=== PATIENT | male | born 1970 | race Caucasian/White ===

== ENCOUNTER 2020-11-06 15:14 | Inpatient (IN) ==
[2020-11-06] MEDS ORDERED: Pantoprazole 40 MG VIAL IVP ONE (15:27)
[2020-11-06] MEDS ORDERED: Octreotide 50 MCG/ML INJ IVP ONE (15:27)
[2020-11-06] MEDS ORDERED: Isovue-370 500 ML BOTTLE IVP ONE (15:28)
[2020-11-06] MEDS ORDERED: cefTRIAXone 1,000 MG in Water for inj. (sterile) 10 ML IVP ONE ×2 (15:28→22:00)
[2020-11-06] MEDS ORDERED: 0.9 % Sodium Chloride 1,000 ML IVC ONE ×3 (15:29→17:12)
[2020-11-06] MEDS ORDERED: Ondansetron 4 MG/2 ML VIAL IVP ONE (15:29)
[2020-11-06] MEDS ORDERED: Octreotide 400 MCG in 0.9 % Sodium Chloride 100 ML IVC SCH ×2 (15:30→22:00)
[2020-11-06] MEDS ORDERED: *HR* FentaNYL (PF) 100 MCG/2 ML VIAL IVP ONE (15:38)
[2020-11-06 15:45] LABS: Basophils % 0.2 %; Eosinophils % 0.1 %; Hematocrit 39.8 % (37.5-50.1); Hemoglobin 13.6 g/dL (12.9-16.9); Immature Granulocytes % 0.6 % (0-4); Lymphocytes % 5.1 %; Mean Corpuscular HGB Conc 34.2 g/dL (31.6-35.5); Mean Corpuscular Hemoglobin 32.8 pg (28.0-33.3); Mean Corpuscular Volume 95.9 fL (83.0-100.0); Mean Platelet Volume 9.1 fL (9.4-12.4); Monocytes # 1.1 K/mcL (0.0-1.3); Monocytes % 5.4 %; Neutrophils # 17.5 K/mcL (1.6-8.9); Platelet Count 144 K/mcL (140-400); Red Blood Count 4.15 M/mcL (4.19-5.50); Red Cell Distribution Width 20.8 % (11.5-14.5); Segmented Neutrophils % 88.6 %; White Blood Count 19.8 K/mcL (4.3-11.1)
[2020-11-06] MEDS ORDERED: Octreotide 50 MCG/ML INJ IVP STA (15:49)
[2020-11-06 15:52] LABS: INR 2.4; Prothrombin Time 27.5 Seconds (9.4-12.1)
[2020-11-06 16:06] LABS: Platelet Estimate Slight Decrease (Normal)
[2020-11-06 16:20] LABS: Acetaminophen < 10 mcg/mL (10-20); Alanine Aminotransferase 54 Units/L (7-52); Albumin 2.4 g/dL (3.5-5.7); Albumin/Globulin Ratio 0.5 (1.1-2.2); Alkaline Phosphatase 121 Units/L (34-104); Aspartate Amino Transferase 82 Units/L (13-39); BUN/Creatinine Ratio 21 (6-26); Bilirubin,Direct 4.3 mg/dL (0.0-0.2); Bilirubin,Indirect 3.9 mg/dL (0.0-1.0); Bilirubin,Total 8.2 mg/dL (0.3-1.0); Blood Urea Nitrogen 31 mg/dL (6-20); Carbon Dioxide 23 mEq/L (23-29); Chloride 94 mEq/L (98-107); Ethanol < 10 mg/dL (Less than 10); Glucose 93 mg/dL (70-105); Lipase 44 Units/L (11-82); Osmolality,Calculated 276 (280-300); Potassium 3.8 mEq/L (3.5-5.1); Salicylate < 2.5 mg/dL (15.0-30.0); Sodium 130 mEq/L (136-145); Total Protein 7.4 g/dL (6.4-8.9); eGFR For African Americans > 60 (> 60); eGFR For Non-African Americans 50 (> 60)
[2020-11-06] MEDS ORDERED: Azithromycin 500 MG in 0.9 % Sodium Chloride 250 ML IVPB ONE (16:21)
[2020-11-06] MEDS ORDERED: Albumin 25% 25gram/100mL 25 GM/100 ML IV.SOLN IVPB ONE (18:30)
[2020-11-06] MEDS ORDERED: Metoclopramide 10 MG/2 ML VIAL IVP ONE (18:46)
[2020-11-06 19:30] LABS: RBC,Peritoneal Fluid 7000 RBC/mcL
[2020-11-06 19:33] LABS: Appearance of Peritoneal Fl HAZY (Clear)
[2020-11-06 19:43] LABS: Amylase,Peritoneal Fluid < 10 Units/L (No Ref Range); Glucose,Peritoneal Fluid 45 mg/dL (No Ref Range); Total Protein,Peritoneal Fluid < 2.0 g/dL
[2020-11-06] MEDS ORDERED: *HR* FentaNYL (PF) 100 MCG/2 ML VIAL ONE (20:09)
[2020-11-06] MEDS ORDERED: Lidocaine HCL 4 ML Topical Solution (Laryng-O-Jet Kit Sterile Pak) TP ONE (20:09)
[2020-11-06] MEDS ORDERED: *HR* Rocuronium Bromide 50 MG/5 ML VIAL ONE (20:10)
[2020-11-06] MEDS ORDERED: *HR* Succinylcholine 200 MG/10 ML VIAL IVP ONE (20:23)
[2020-11-06 20:25] LABS: Basophils,Peritoneal Fluid 0 %; Eosinophils,Peritoneal Fluid 0 %
[2020-11-06] MEDS ORDERED: *HR* PHENYLEPHRINE 1,000 MCG/10 ML SYRINGE IVP ONE (20:48)
[2020-11-06] MEDS ORDERED: *HR* Midazolam HCl 2 MG/2 ML VIAL ONE (20:48)
[2020-11-06] MEDS: FentaNYL (PF) 1,000 MCG/100 ML IV.SOLN IVC SCH (21:10)
[2020-11-06] MEDS ORDERED: Artificial Tears SOLN 15 ML BOTTLE BOTH EYES PRN (21:14)
[2020-11-06] MEDS ORDERED: Naloxone 0.4 MG/ML INJ IVP PRN (21:16)
[2020-11-06] MEDS ORDERED: cefoTAXime 2,000 MG in 0.9 % Sodium Chloride 100 ML IVPB SCH (22:00)
[2020-11-06] MEDS: Chlorhexidine Rinse 15 ML MOUTHWASH MM SCH (22:08)
[2020-11-06 22:31] LABS: Hematocrit 34.4 % (37.5-50.1)
[2020-11-06 22:39] LABS: VBG Ionized Calcium 0.92 mmol/L (1.15-1.35)
[2020-11-06 22:40] LABS: Hemoglobin 11.4 g/dL (12.9-16.9)
[2020-11-06 22:51] LABS: BUN/Creatinine Ratio 26 (6-26); Blood Urea Nitrogen 33 mg/dL (6-20); Calcium 7.4 mg/dL (8.6-10.3); Carbon Dioxide 22 mEq/L (23-29); Chloride 98 mEq/L (98-107); Glucose 102 mg/dL (70-105); Magnesium 1.8 mg/dL (1.6-2.6); Osmolality,Calculated 275 (280-300); Phosphorous 4.8 mg/dL (2.7-4.5); Potassium 4.5 mEq/L (3.5-5.1); Sodium 129 mEq/L (136-145); eGFR For African Americans > 60 (> 60); eGFR For Non-African Americans 59 (> 60)
[2020-11-06] MEDS: Artificial Tears SOLN 15 ML BOTTLE BOTH EYES SCH (23:25)
[2020-11-06] MEDS: Octreotide 400 MCG in 0.9 % Sodium Chloride 100 ML IVC SCH (23:26)
[2020-11-07] MEDS: Calcium Gluconate 1gm/50mL 1 GM/50 ML BAG IVPB SCH ×4 (00:29→07:36)
[2020-11-07 01:32] LABS: Bacteria,Urine Few per hpf (None-Few); Bilirubin,Urine Small (Negative); Blood,Urine Small (Negative); Clarity,Urine Clear (Clear); Color,Urine Dark-Yellow (Yellow); Glucose,Urine (UA) Normal (Normal); Hyaline Casts,Urine Moderate per lpf (None Seen); Ketones,Urine Negative (Negative); Leukocyte Esterase,Urine Negative (Negative); Mucus,Urine Few per lpf (None-Few); Nitrite,Urine Negative (Negative); PH,Urine 5.5 pH Units (5.0-8.0); Protein,Urine Trace mg/dL (Neg-Trace); Specific Gravity,Urine > 1.030 (1.010-1.025); Squamous Epithelial Cell,Urine Few per hpf (None-Few)
[2020-11-07] MEDS: Artificial Tears SOLN 15 ML BOTTLE BOTH EYES SCH ×5 (03:26→20:36)
[2020-11-07 04:47] LABS: ABG Base Excess -1 mEq/L (-2 to 3); ABG HCO3 25 mEq/L (21-27); ABG Oxygen Saturation 95 % (95-98); ABG PCO2 41 mmHg (35-45); ABG PH 7.39 pH Units (7.32-7.45); ABG PO2 76 mmHg (85-104); ABG TCO2 26 mEq/L (20-26); Blood Gas VT 500 cc
[2020-11-07] MEDS: FentaNYL (PF) 1,000 MCG/100 ML IV.SOLN IVC SCH ×2 (05:20→15:26)
[2020-11-07 05:45] LABS: VBG Ionized Calcium 1.06 mmol/L (1.15-1.35)
[2020-11-07 05:52] LABS: INR 2.8; Prothrombin Time 31.7 Seconds (9.4-12.1)
[2020-11-07 05:54] LABS: Activated Partial Thrombo Time 58.5 Seconds (26.0-36.0)
[2020-11-07] MEDS ORDERED: 0.9 % Sodium Chloride 1,000 ML IVC ONE (05:57)
[2020-11-07 06:05] LABS: Albumin 2.1 g/dL (3.5-5.7); Albumin/Globulin Ratio 0.6 (1.1-2.2); Bilirubin,Direct 4.5 mg/dL (0.0-0.2); Bilirubin,Indirect 3.7 mg/dL (0.0-1.0); Bilirubin,Total 8.2 mg/dL (0.3-1.0); Calcium 7.9 mg/dL (8.6-10.3); Globulin 3.8 g/dL (2.4-3.5); Magnesium 2.2 mg/dL (1.6-2.6); Potassium 5.1 mEq/L (3.5-5.1); Total Protein 5.9 g/dL (6.4-8.9)
[2020-11-07] MEDS: Octreotide 400 MCG in 0.9 % Sodium Chloride 100 ML IVC SCH ×2 (07:03→16:21)
[2020-11-07] MEDS: Pantoprazole 40 MG VIAL IVP SCH ×2 (08:00→15:33)
[2020-11-07] MEDS: Chlorhexidine Rinse 15 ML MOUTHWASH MM SCH ×2 (08:01→20:36)
[2020-11-07 11:17] LABS: Basophils # 0.1 K/mcL (0.0-0.2); Basophils % 0.2 %; Eosinophils % 0.1 %; Hematocrit 35.9 % (37.5-50.1); Hemoglobin 11.9 g/dL (12.9-16.9); Lymphocytes # 2.8 K/mcL (0.6-4.6); Lymphocytes % 9.1 %; Mean Corpuscular HGB Conc 33.1 g/dL (31.6-35.5); Mean Corpuscular Hemoglobin 33.1 pg (28.0-33.3); Mean Corpuscular Volume 99.7 fL (83.0-100.0); Mean Platelet Volume 9.2 fL (9.4-12.4); Monocytes # 3.5 K/mcL (0.0-1.3); Monocytes % 11.4 %; Platelet Count 136 K/mcL (140-400); Red Cell Distribution Width 21.4 % (11.5-14.5); Segmented Neutrophils % 78.2 %
[2020-11-07 11:18] LABS: Neutrophils # 24.2 K/mcL (1.6-8.9)
[2020-11-07 11:23] LABS: White Blood Count 30.9 K/mcL (4.3-11.1)
[2020-11-07] MEDS: Albumin 25% 25gram/100mL 25 GM/100 ML IV.SOLN IVPB SCH (15:12)
[2020-11-07] MEDS: Piperacillin/Tazobactam 3.375 GM in 0.9 % Sodium Chloride Mini Bag 100 ML IVPB SCH (16:18)
[2020-11-07] MEDS ORDERED: Furosemide 20 MG/2 ML VIAL IVP ONE (17:00)
[2020-11-07] MEDS ORDERED: Ringers Solution, Lactated 500 ML IVC ONE (18:18)
[2020-11-07] MEDS ORDERED: *HR* Dextrose 50 % in Water (Vial) 50 ML VIAL IVP PRN (18:22)
[2020-11-07] MEDS ORDERED: cefTRIAXone 2,000 MG in Water for inj. (sterile) 20 ML IVP SCH (21:00)
[2020-11-08] MEDS: Piperacillin/Tazobactam 3.375 GM in 0.9 % Sodium Chloride Mini Bag 100 ML IVPB SCH ×4 (00:27→23:02)
[2020-11-08] MEDS: Albumin 25% 25gram/100mL 25 GM/100 ML IV.SOLN IVPB SCH ×4 (00:27→23:03)
[2020-11-08] MEDS: Artificial Tears SOLN 15 ML BOTTLE BOTH EYES SCH ×7 (00:28→23:03)
[2020-11-08] MEDS: Octreotide 400 MCG in 0.9 % Sodium Chloride 100 ML IVC SCH ×3 (00:33→19:30)
[2020-11-08] MEDS: FentaNYL (PF) 1,000 MCG/100 ML IV.SOLN IVC SCH ×3 (01:35→23:01)
[2020-11-08 04:12] LABS: VBG Ionized Calcium 1.03 mmol/L (1.15-1.35)
[2020-11-08 04:13] LABS: Hematocrit 28.9 % (37.5-50.1); Mean Corpuscular HGB Conc 33.2 g/dL (31.6-35.5); Mean Corpuscular Hemoglobin 34.2 pg (28.0-33.3); Mean Corpuscular Volume 102.8 fL (83.0-100.0); Mean Platelet Volume 9.6 fL (9.4-12.4); Platelet Count 149 K/mcL (140-400); Red Blood Count 2.81 M/mcL (4.19-5.50); Red Cell Distribution Width 21.8 % (11.5-14.5); White Blood Count 22.9 K/mcL (4.3-11.1)
[2020-11-08 04:18] LABS: Hemoglobin 9.6 g/dL (12.9-16.9)
[2020-11-08 04:22] LABS: INR 3.3; Prothrombin Time 37.1 Seconds (9.4-12.1)
[2020-11-08 04:34] LABS: Albumin 2.5 g/dL (3.5-5.7); Albumin/Globulin Ratio 0.8 (1.1-2.2); Bilirubin,Total 6.5 mg/dL (0.3-1.0); Calcium 7.9 mg/dL (8.6-10.3); Globulin 3.2 g/dL (2.4-3.5); Magnesium 2.4 mg/dL (1.6-2.6); Phosphorous 6.3 mg/dL (2.7-4.5); Potassium 5.1 mEq/L (3.5-5.1); Total Protein 5.7 g/dL (6.4-8.9)
[2020-11-08 04:54] LABS: Anisocytosis 1+ (Not Present); Eosinophils # 0.9 K/mcL (0.0-0.6); Hypochromasia Present (Not Present); Lymphocytes # 1.4 K/mcL (0.6-4.6); Monocytes # 2.3 K/mcL (0.0-1.3); Neutrophils # 18.3 K/mcL (1.6-8.9); Platelet Estimate Normal (Normal); Poikilocytosis 1+ (Not Present)
[2020-11-08 04:55] LABS: Macrocytosis Present (Not Present)
[2020-11-08 05:14] LABS: ABG Base Excess -3 mEq/L (-2 to 3); ABG HCO3 22 mEq/L (21-27); ABG Oxygen Saturation 94 % (95-98); ABG PCO2 39 mmHg (35-45); ABG PH 7.37 pH Units (7.32-7.45); ABG PO2 72 mmHg (85-104); ABG TCO2 23 mEq/L (20-26); Blood Gas VT 500 cc
[2020-11-08] MEDS: Calcium Gluconate 1gm/50mL 1 GM/50 ML BAG IVPB SCH ×2 (06:54→07:15)
[2020-11-08] MEDS: Pantoprazole 40 MG VIAL IVP SCH ×2 (07:47→16:46)
[2020-11-08] MEDS: Chlorhexidine Rinse 15 ML MOUTHWASH MM SCH ×2 (08:05→22:04)
[2020-11-08] MEDS ORDERED: 0.9 % Sodium Chloride 250 ML ONE (10:46)
[2020-11-08] MEDS ORDERED: Heparin 1,000 UNITS/500 mL 500 ML ONE (13:07)
[2020-11-08] MEDS ORDERED: *HR* Heparin 5,000 UNIT/ML VIAL ONE (13:36)
[2020-11-08] MEDS ORDERED: 0.9 % Sodium Chloride 1,000 ML PRIME ONE ×2 (14:38)
[2020-11-08] MEDS ORDERED: *HR* Alteplase (Cathflo) 2 MG VIAL IVP PRN (14:38)
[2020-11-08] MEDS ORDERED: 0.9 % Sodium Chloride 1,000 ML PRIME SCH (14:45)
[2020-11-08] MEDS: Norepinephrine 4 MG/254 ML IV.SOLN IVC SCH ×2 (15:21→23:02)
[2020-11-08] MEDS ORDERED: 0.9 % Sodium Chloride 500 ML ONE (15:28)
[2020-11-08] MEDS: PrismaSATE BGK 4/2.5 5,000 ML CRRT SCH ×6 (15:54→23:18)
[2020-11-08 16:19] LABS: Complement C3 23 mg/dL (87-200)
[2020-11-08] MEDS ORDERED: Perflutren Lipid Microsphere 1.3 ML in 0.9 % Sodium Chloride 8.7 ML IVP PRN (16:27)
[2020-11-08 18:21] LABS: Chloride,Urine < 15 mEq/L; Creatinine,Urine 121 mg/dL; Potassium,Urine 70.8 mEq/L; Sodium, Urine 14.1 mEq/L
[2020-11-09] MEDS: PrismaSATE BGK 4/2.5 5,000 ML CRRT SCH ×14 (02:38→23:02)
[2020-11-09] MEDS: Artificial Tears SOLN 15 ML BOTTLE BOTH EYES SCH ×6 (03:03→23:50)
[2020-11-09] MEDS: Octreotide 400 MCG in 0.9 % Sodium Chloride 100 ML IVC SCH (03:59)
[2020-11-09] MEDS: Norepinephrine 4 MG/254 ML IV.SOLN IVC SCH ×4 (05:05→23:48)
[2020-11-09 05:06] LABS: ABG Base Excess 0 mEq/L (-2 to 3); ABG HCO3 25 mEq/L (21-27); ABG Oxygen Saturation 95 % (95-98); ABG PCO2 43 mmHg (35-45); ABG PH 7.38 pH Units (7.32-7.45); ABG PO2 76 mmHg (85-104); ABG TCO2 27 mEq/L (20-26); Blood Gas Modality ASSIST CONTROL; Blood Gas VT 500 cc
[2020-11-09 05:18] LABS: Platelet Count 150 K/mcL (140-400)
[2020-11-09 05:20] LABS: Hematocrit 30.1 % (37.5-50.1); Hemoglobin 9.9 g/dL (12.9-16.9); Mean Corpuscular HGB Conc 32.9 g/dL (31.6-35.5); Mean Corpuscular Hemoglobin 32.8 pg (28.0-33.3); Mean Corpuscular Volume 99.7 fL (83.0-100.0); Mean Platelet Volume 9.3 fL (9.4-12.4); Red Blood Count 3.02 M/mcL (4.19-5.50); Red Cell Distribution Width 21.6 % (11.5-14.5); White Blood Count 26.5 K/mcL (4.3-11.1)
[2020-11-09 05:27] LABS: INR 2.7; Prothrombin Time 30.4 Seconds (9.4-12.1)
[2020-11-09 05:40] LABS: Albumin 3.2 g/dL (3.5-5.7); Albumin/Globulin Ratio 1.1 (1.1-2.2); Bilirubin,Total 7.8 mg/dL (0.3-1.0); Calcium 8.3 mg/dL (8.6-10.3); Globulin 2.9 g/dL (2.4-3.5); Magnesium 2.7 mg/dL (1.6-2.6); Phosphorous 4.5 mg/dL (2.7-4.5); Total Protein 6.1 g/dL (6.4-8.9)
[2020-11-09 05:52] LABS: Anisocytosis 1+ (Not Present); Lymphocytes # 0.5 K/mcL (0.6-4.6); Monocytes # 1.6 K/mcL (0.0-1.3); Neutrophils # 23.9 K/mcL (1.6-8.9); Platelet Estimate Normal (Normal); Toxic Granulation Present (Not Present); Toxic Vacuolation Present (Not Present)
[2020-11-09 05:53] LABS: Hypochromasia Present (Not Present); Macrocytosis Present (Not Present)
[2020-11-09] MEDS: Pantoprazole 40 MG VIAL IVP SCH ×2 (08:53→15:59)
[2020-11-09] MEDS: Chlorhexidine Rinse 15 ML MOUTHWASH MM SCH ×2 (08:53→19:35)
[2020-11-09] MEDS: Piperacillin/Tazobactam 3.375 GM in 0.9 % Sodium Chloride Mini Bag 100 ML IVPB SCH ×3 (09:18→23:50)
[2020-11-09] MEDS: Albumin 25% 25gram/100mL 25 GM/100 ML IV.SOLN IVPB SCH ×3 (09:21→23:50)
[2020-11-09] MEDS: FentaNYL (PF) 1,000 MCG/100 ML IV.SOLN IVC SCH ×2 (10:00→20:54)
[2020-11-09 10:07] LABS: Fluid Source for Triglycerides PERITONEAL FL; Triglycerides,Body Fluid 36 mg/dL
[2020-11-10] MEDS: PrismaSATE BGK 4/2.5 5,000 ML CRRT SCH ×14 (02:43→23:33)
[2020-11-10] MEDS: Artificial Tears SOLN 15 ML BOTTLE BOTH EYES SCH ×6 (02:45→23:34)
[2020-11-10 03:40] LABS: Hematocrit 28.6 % (37.5-50.1); Hemoglobin 9.6 g/dL (12.9-16.9); Immature Platelets 2.5 % (1.1-6.1); Mean Corpuscular HGB Conc 33.6 g/dL (31.6-35.5); Mean Corpuscular Hemoglobin 33.8 pg (28.0-33.3); Mean Corpuscular Volume 100.7 fL (83.0-100.0); Mean Platelet Volume 8.8 fL (9.4-12.4); Nucleated Red Blood Cells 0.3 /100 WBC (0); Platelet Count 148 K/mcL (140-400); Red Blood Count 2.84 M/mcL (4.19-5.50); Red Cell Distribution Width 22.1 % (11.5-14.5); White Blood Count 20.5 K/mcL (4.3-11.1)
[2020-11-10 03:44] LABS: INR 3.2; Prothrombin Time 35.5 Seconds (9.4-12.1)
[2020-11-10 03:57] LABS: Albumin 3.5 g/dL (3.5-5.7); Albumin/Globulin Ratio 1.3 (1.1-2.2); Bilirubin,Total 7.8 mg/dL (0.3-1.0); Calcium 8.2 mg/dL (8.6-10.3); Globulin 2.6 g/dL (2.4-3.5); Magnesium 2.8 mg/dL (1.6-2.6); Potassium 4.8 mEq/L (3.5-5.1); Total Protein 6.1 g/dL (6.4-8.9)
[2020-11-10 04:22] LABS: ABG Base Excess 0 mEq/L (-2 to 3); ABG HCO3 24 mEq/L (21-27); ABG Oxygen Saturation 95 % (95-98); ABG PCO2 38 mmHg (35-45); ABG PH 7.41 pH Units (7.32-7.45); ABG PO2 74 mmHg (85-104); ABG TCO2 25 mEq/L (20-26); Blood Gas Modality AF; Blood Gas VT 500 cc
[2020-11-10 04:32] LABS: Anisocytosis 1+ (Not Present); Eosinophils # 0.4 K/mcL (0.0-0.6); Lymphocytes # 2.1 K/mcL (0.6-4.6); Monocytes # 0.8 K/mcL (0.0-1.3); Platelet Estimate Slight Decrease (Normal); Poikilocytosis 1+ (Not Present)
[2020-11-10] MEDS: Norepinephrine 4 MG/254 ML IV.SOLN IVC SCH ×3 (06:53→19:42)
[2020-11-10] MEDS: FentaNYL (PF) 1,000 MCG/100 ML IV.SOLN IVC SCH (06:56)
[2020-11-10] MEDS: Pantoprazole 40 MG VIAL IVP SCH ×2 (07:49→15:55)
[2020-11-10] MEDS: Chlorhexidine Rinse 15 ML MOUTHWASH MM SCH ×2 (07:50→19:47)
[2020-11-10] MEDS: Albumin 25% 25gram/100mL 25 GM/100 ML IV.SOLN IVPB SCH ×3 (07:50→23:34)
[2020-11-10] MEDS: Piperacillin/Tazobactam 3.375 GM in 0.9 % Sodium Chloride Mini Bag 100 ML IVPB SCH ×3 (08:17→23:33)
[2020-11-10] MEDS ORDERED: *HR* Dextrose 50 % in Water (Vial) 50 ML VIAL IVP ONE ×2 (11:43→16:20)
[2020-11-10] MEDS ORDERED: D10% in Water 500 ML IVC PRN (13:40)
[2020-11-10] MEDS ORDERED: Dextrose Gel 15 GM/37.5 ML TUBE PO PRN ×2 (13:50)
[2020-11-10] MEDS ORDERED: D5% in Water 1,000 ML IVC PRN (13:50)
[2020-11-10] MEDS ORDERED: *HR* Dextrose 50 % in Water (Vial) 50 ML VIAL IVP PRN (13:50)
[2020-11-10 14:58] LABS: Hematocrit 29.1 % (37.5-50.1); Hemoglobin 9.5 g/dL (12.9-16.9); Mean Corpuscular HGB Conc 32.6 g/dL (31.6-35.5); Mean Corpuscular Hemoglobin 34.3 pg (28.0-33.3); Mean Corpuscular Volume 105.1 fL (83.0-100.0); Mean Platelet Volume 9.1 fL (9.4-12.4); Nucleated Red Blood Cells 0.7 /100 WBC (0); Platelet Count 125 K/mcL (140-400); Red Blood Count 2.77 M/mcL (4.19-5.50); Red Cell Distribution Width 22.4 % (11.5-14.5); White Blood Count 21.8 K/mcL (4.3-11.1)
[2020-11-10 16:31] LABS: Eosinophils # 2.2 K/mcL (0.0-0.6); Lymphocytes # 1.3 K/mcL (0.6-4.6); Monocytes # 1.7 K/mcL (0.0-1.3); Neutrophils # 15.3 K/mcL (1.6-8.9)
[2020-11-10 16:32] LABS: Platelet Estimate Slight Decrease (Normal); Smudge Cells Present (Not Present); Toxic Granulation Present (Not Present)
[2020-11-10] MEDS ORDERED: 0.9 % Sodium Chloride 250 ML ONE (16:32)
[2020-11-10 16:34] LABS: Hypochromasia Present (Not Present); Macrocytosis Present (Not Present); Poikilocytosis 1+ (Not Present); Polychromasia 1+ (Not Present)
[2020-11-10 17:00] LABS: ABG Base Excess 0 mEq/L (-2 to 3); ABG HCO3 25 mEq/L (21-27); ABG Oxygen Saturation 92 % (95-98); ABG PCO2 44 mmHg (35-45); ABG PH 7.37 pH Units (7.32-7.45); ABG PO2 65 mmHg (85-104); ABG TCO2 27 mEq/L (20-26); Blood Gas Modality ASSIST CONTROL; Blood Gas VT 500 cc
[2020-11-10] MEDS ORDERED: Clinimix 5%-20% SOLUTION 2,000 ML with MVI, adult with vitamin K 10 ML, Sodium Acetat... IVC SCH (17:00)
[2020-11-10] MEDS ORDERED: 0.9 % Sodium Chloride 500 ML ONE (18:16)
[2020-11-10] MEDS: Vasopressin 40 UNIT in D5% in Water 100 ML IVC SCH (18:53)
[2020-11-10] MEDS: Insulin LISPRO 300 UNITS/3 ML VIAL SUBQ SCH (20:09)
[2020-11-10 22:26] LABS: Hematocrit 28.7 % (37.5-50.1); Hemoglobin 9.5 g/dL (12.9-16.9); Mean Corpuscular HGB Conc 33.1 g/dL (31.6-35.5); Mean Corpuscular Hemoglobin 33.7 pg (28.0-33.3); Mean Corpuscular Volume 101.8 fL (83.0-100.0); Mean Platelet Volume 8.8 fL (9.4-12.4); Nucleated Red Blood Cells 0.4 /100 WBC (0); Platelet Count 110 K/mcL (140-400); Red Blood Count 2.82 M/mcL (4.19-5.50); Red Cell Distribution Width 22.2 % (11.5-14.5); White Blood Count 23.8 K/mcL (4.3-11.1)
[2020-11-10 23:03] LABS: Eosinophils # 1.9 K/mcL (0.0-0.6); Lymphocytes # 1.9 K/mcL (0.6-4.6); Monocytes # 2.9 K/mcL (0.0-1.3); Neutrophils # 16.7 K/mcL (1.6-8.9); Platelet Estimate Decreased (Normal)
[2020-11-10 23:04] LABS: Reactive Lymphocytes Present (Not Present); Smudge Cells Present (Not Present); Toxic Granulation Present (Not Present)
[2020-11-10 23:05] LABS: Anisocytosis 2+ (Not Present)
[2020-11-10 23:06] LABS: Macrocytosis Present (Not Present); Polychromasia 1+ (Not Present)
[2020-11-11] MEDS: Insulin LISPRO 300 UNITS/3 ML VIAL SUBQ SCH ×6 (00:29→20:18)
[2020-11-11] MEDS: Norepinephrine 4 MG/254 ML IV.SOLN IVC SCH ×4 (01:53→22:21)
[2020-11-11] MEDS: PrismaSATE BGK 4/2.5 5,000 ML CRRT SCH ×14 (02:46→23:39)
[2020-11-11] MEDS: Artificial Tears SOLN 15 ML BOTTLE BOTH EYES SCH ×5 (02:46→20:18)
[2020-11-11 03:52] LABS: Mean Corpuscular HGB Conc 32.7 g/dL (31.6-35.5)
[2020-11-11 03:54] LABS: Hematocrit 29.4 % (37.5-50.1); Hemoglobin 9.6 g/dL (12.9-16.9); Immature Platelets 2.5 % (1.1-6.1); Mean Corpuscular Hemoglobin 33.1 pg (28.0-33.3); Mean Corpuscular Volume 101.4 fL (83.0-100.0); Nucleated Red Blood Cells 0.3 /100 WBC (0); Platelet Count 119 K/mcL (140-400); White Blood Count 20.8 K/mcL (4.3-11.1)
[2020-11-11 04:09] LABS: INR 2.5; Prothrombin Time 28.4 Seconds (9.4-12.1)
[2020-11-11 04:15] LABS: Anisocytosis 1+ (Not Present); Eosinophils # 0.4 K/mcL (0.0-0.6); Hypochromasia Present (Not Present); Lymphocytes # 3.7 K/mcL (0.6-4.6); Monocytes # 1.3 K/mcL (0.0-1.3); Neutrophils # 15.4 K/mcL (1.6-8.9); Platelet Estimate Slight Decrease (Normal); Polychromasia 1+ (Not Present); Reactive Lymphocytes Present (Not Present); Toxic Granulation Present (Not Present)
[2020-11-11 04:17] LABS: Albumin 3.9 g/dL (3.5-5.7); Albumin/Globulin Ratio 1.6 (1.1-2.2); Bilirubin,Indirect 3.6 mg/dL (0.0-1.0); Bilirubin,Total 9.6 mg/dL (0.3-1.0); Globulin 2.5 g/dL (2.4-3.5); Total Protein 6.4 g/dL (6.4-8.9)
[2020-11-11 04:18] LABS: Calcium 8.5 mg/dL (8.6-10.3); Magnesium 2.8 mg/dL (1.6-2.6); Phosphorous 3.1 mg/dL (2.7-4.5); Potassium 4.7 mEq/L (3.5-5.1)
[2020-11-11 04:21] LABS: ABG Base Excess 0 mEq/L (-2 to 3); ABG HCO3 26 mEq/L (21-27); ABG Oxygen Saturation 92 % (95-98); ABG PCO2 44 mmHg (35-45); ABG PH 7.37 pH Units (7.32-7.45); ABG PO2 65 mmHg (85-104); ABG TCO2 27 mEq/L (20-26); Blood Gas VT 550 cc
[2020-11-11] MEDS: Pantoprazole 40 MG VIAL IVP SCH ×2 (06:10→15:54)
[2020-11-11] MEDS: Albumin 25% 25gram/100mL 25 GM/100 ML IV.SOLN IVPB SCH ×2 (07:53→15:53)
[2020-11-11] MEDS: Piperacillin/Tazobactam 3.375 GM in 0.9 % Sodium Chloride Mini Bag 100 ML IVPB SCH ×2 (07:54→15:53)
[2020-11-11] MEDS: Chlorhexidine Rinse 15 ML MOUTHWASH MM SCH ×2 (09:13→21:13)
[2020-11-11 10:44] LABS: ANA IgG by ELISA NONE DETECTED (None Detected); Serine Protease-3 Antibody 6 AU/mL (0-19)
[2020-11-11] MEDS: Vasopressin 40 UNIT in D5% in Water 100 ML IVC SCH (12:03)
[2020-11-11] MEDS ORDERED: Clinimix 5%-20% SOLUTION 2,000 ML with MVI, adult with vitamin K 10 ML, Sodium Acetat... IVC SCH (17:00)
[2020-11-11] MEDS: FentaNYL (PF) 1,000 MCG/100 ML IV.SOLN IVC SCH (21:00)
[2020-11-12] MEDS: Piperacillin/Tazobactam 3.375 GM in 0.9 % Sodium Chloride Mini Bag 100 ML IVPB SCH ×4 (00:04→23:52)
[2020-11-12] MEDS: Albumin 25% 25gram/100mL 25 GM/100 ML IV.SOLN IVPB SCH ×4 (00:05→23:52)
[2020-11-12] MEDS: Artificial Tears SOLN 15 ML BOTTLE BOTH EYES SCH ×7 (00:05→23:52)
[2020-11-12] MEDS: Insulin LISPRO 300 UNITS/3 ML VIAL SUBQ SCH ×6 (00:15→19:57)
[2020-11-12] MEDS: PrismaSATE BGK 4/2.5 5,000 ML CRRT SCH ×10 (02:58→19:50)
[2020-11-12 04:08] LABS: ABG Base Excess 2 mEq/L (-2 to 3); ABG HCO3 26 mEq/L (21-27); ABG Oxygen Saturation 89 % (95-98); ABG PCO2 42 mmHg (35-45); ABG PH 7.41 pH Units (7.32-7.45); ABG PO2 56 mmHg (85-104); ABG TCO2 28 mEq/L (20-26); Blood Gas VT 550 cc
[2020-11-12 04:15] LABS: ABG Ionized Calcium 1.08 mmol/L (1.15-1.35)
[2020-11-12 04:28] LABS: Mean Platelet Volume 9.3 fL (9.4-12.4); Nucleated Red Blood Cells 0.4 /100 WBC (0)
[2020-11-12 04:30] LABS: Hematocrit 29.5 % (37.5-50.1); Hemoglobin 9.6 g/dL (12.9-16.9); Immature Platelets 2.4 % (1.1-6.1); Mean Corpuscular HGB Conc 32.5 g/dL (31.6-35.5); Mean Corpuscular Hemoglobin 33.6 pg (28.0-33.3); Mean Corpuscular Volume 103.1 fL (83.0-100.0); Red Blood Count 2.86 M/mcL (4.19-5.50); Red Cell Distribution Width 21.9 % (11.5-14.5); White Blood Count 17.3 K/mcL (4.3-11.1)
[2020-11-12 04:36] LABS: Platelet Count 91 K/mcL (140-400)
[2020-11-12 04:42] LABS: Activated Partial Thrombo Time 65.8 Seconds (26.0-36.0); Alanine Aminotransferase 30 Units/L (7-52); Albumin 3.9 g/dL (3.5-5.7); Albumin/Globulin Ratio 1.6 (1.1-2.2); Alkaline Phosphatase 78 Units/L (34-104); Aspartate Amino Transferase 108 Units/L (13-39); BUN/Creatinine Ratio 10 (6-26); Bilirubin,Direct 6.8 mg/dL (0.0-0.2); Bilirubin,Indirect 4.8 mg/dL (0.0-1.0); Bilirubin,Total 11.6 mg/dL (0.3-1.0); Blood Urea Nitrogen 15 mg/dL (6-20); Calcium 8.4 mg/dL (8.6-10.3); Carbon Dioxide 26 mEq/L (23-29); Chloride 104 mEq/L (98-107); Globulin 2.4 g/dL (2.4-3.5); Glucose 140 mg/dL (70-105); Magnesium 2.6 mg/dL (1.6-2.6); Osmolality,Calculated 283 (280-300); Phosphorous 1.9 mg/dL (2.7-4.5); Potassium 4.6 mEq/L (3.5-5.1); Sodium 135 mEq/L (136-145); Total Protein 6.3 g/dL (6.4-8.9); eGFR For African Americans > 60 (> 60); eGFR For Non-African Americans 50 (> 60)
[2020-11-12 04:44] LABS: INR 3.9
[2020-11-12 04:45] LABS: Prothrombin Time 43.9 Seconds (9.4-12.1)
[2020-11-12] MEDS: Vasopressin 40 UNIT in D5% in Water 100 ML IVC SCH ×2 (05:00→18:03)
[2020-11-12] MEDS: Norepinephrine 4 MG/254 ML IV.SOLN IVC SCH ×3 (05:00→18:40)
[2020-11-12] MEDS ORDERED: *HR* Heparin 5,000 UNIT/ML VIAL ONE (05:08)
[2020-11-12 05:19] LABS: Anisocytosis 2+ (Not Present); Eosinophils # 0.7 K/mcL (0.0-0.6); Lymphocytes # 2.8 K/mcL (0.6-4.6); Monocytes # 0.4 K/mcL (0.0-1.3); Neutrophils # 12.8 K/mcL (1.6-8.9); Platelet Estimate Decreased (Normal); Reactive Lymphocytes Present (Not Present); Toxic Granulation Present (Not Present)
[2020-11-12] MEDS: *HR* Heparin 5,000 UNIT/ML VIAL IVP PRN (06:20)
[2020-11-12] MEDS: Pantoprazole 40 MG VIAL IVP SCH ×2 (06:53→15:55)
[2020-11-12] MEDS: Chlorhexidine Rinse 15 ML MOUTHWASH MM SCH ×2 (07:39→19:57)
[2020-11-12] MEDS ORDERED: Clinimix 5%-20% SOLUTION 2,000 ML with MVI, adult with vitamin K 10 ML, Sodium Acetat... IVC SCH (17:00)
[2020-11-13] MEDS: Insulin LISPRO 300 UNITS/3 ML VIAL SUBQ SCH ×7 (00:09→23:49)
[2020-11-13] MEDS: PrismaSATE BGK 4/2.5 5,000 ML CRRT SCH ×10 (01:00→22:23)
[2020-11-13] MEDS: FentaNYL (PF) 1,000 MCG/100 ML IV.SOLN IVC SCH (01:30)
[2020-11-13] MEDS: Norepinephrine 4 MG/254 ML IV.SOLN IVC SCH ×2 (03:00→10:11)
[2020-11-13 04:14] LABS: Hematocrit 31.8 % (37.5-50.1); Hemoglobin 10.4 g/dL (12.9-16.9); Mean Corpuscular HGB Conc 32.7 g/dL (31.6-35.5); Mean Corpuscular Hemoglobin 33.9 pg (28.0-33.3); Mean Corpuscular Volume 103.6 fL (83.0-100.0); Mean Platelet Volume 9.8 fL (9.4-12.4); Red Blood Count 3.07 M/mcL (4.19-5.50); Red Cell Distribution Width 22.3 % (11.5-14.5); White Blood Count 18.9 K/mcL (4.3-11.1)
[2020-11-13 04:15] LABS: Platelet Count 60 K/mcL (140-400)
[2020-11-13 04:25] LABS: INR 2.5; Prothrombin Time 27.7 Seconds (9.4-12.1)
[2020-11-13 04:29] LABS: ABG Base Excess 2 mEq/L (-2 to 3); ABG HCO3 26 mEq/L (21-27); ABG Oxygen Saturation 94 % (95-98); ABG PCO2 41 mmHg (35-45); ABG PH 7.42 pH Units (7.32-7.45); ABG PO2 70 mmHg (85-104); ABG TCO2 28 mEq/L (20-26); Blood Gas VT 550 cc
[2020-11-13 04:30] LABS: Calcium 8.8 mg/dL (8.6-10.3); Magnesium 2.4 mg/dL (1.6-2.6); Phosphorous 2.7 mg/dL (2.7-4.5); Potassium 4.7 mEq/L (3.5-5.1)
[2020-11-13] MEDS: Artificial Tears SOLN 15 ML BOTTLE BOTH EYES SCH ×6 (04:39→23:48)
[2020-11-13 04:49] LABS: Ferritin 216 ng/mL (20-250); Iron 66 mcg/dL (65-175); Transferrin < 75 mg/dL (203-362)
[2020-11-13] MEDS ORDERED: *HR* Heparin 5,000 UNIT/ML VIAL ONE (05:26)
[2020-11-13] MEDS: *HR* Heparin 5,000 UNIT/ML VIAL IVP PRN (07:18)
[2020-11-13] MEDS: Pantoprazole 40 MG VIAL IVP SCH ×2 (07:40→15:50)
[2020-11-13] MEDS: Albumin 25% 25gram/100mL 25 GM/100 ML IV.SOLN IVPB SCH ×3 (07:59→23:50)
[2020-11-13] MEDS: Chlorhexidine Rinse 15 ML MOUTHWASH MM SCH ×2 (07:59→21:00)
[2020-11-13] MEDS: Piperacillin/Tazobactam 3.375 GM in 0.9 % Sodium Chloride Mini Bag 100 ML IVPB SCH (08:00)
[2020-11-13] MEDS ORDERED: Meropenem 1,000 MG in 0.9 % Sodium Chloride Mini Bag 100 ML IVP SCH (11:00)
[2020-11-13] MEDS: Meropenem 1,000 MG in Water for inj. (sterile) 20 ML IVP SCH ×2 (11:14→23:05)
[2020-11-13] MEDS: Vasopressin 40 UNIT in D5% in Water 100 ML IVC SCH (13:07)
[2020-11-13] MEDS ORDERED: Clinimix 5%-20% SOLUTION 2,000 ML with MVI, adult with vitamin K 10 ML, Sodium Acetat... IVC SCH (17:00)
[2020-11-14] MEDS: Vasopressin 40 UNIT in D5% in Water 100 ML IVC SCH (01:28)
[2020-11-14] MEDS: FentaNYL (PF) 1,000 MCG/100 ML IV.SOLN IVC SCH (01:29)
[2020-11-14] MEDS: PrismaSATE BGK 4/2.5 5,000 ML CRRT SCH ×2 (03:29→03:31)
[2020-11-14 03:36] LABS: Nucleated Red Blood Cells 0.2 /100 WBC (0)
[2020-11-14 03:38] LABS: Hematocrit 27.4 % (37.5-50.1); Immature Platelets 4.4 % (1.1-6.1); Mean Corpuscular HGB Conc 32.8 g/dL (31.6-35.5); Mean Corpuscular Volume 103.4 fL (83.0-100.0); Mean Platelet Volume 9.4 fL (9.4-12.4); Red Blood Count 2.65 M/mcL (4.19-5.50); Red Cell Distribution Width 22.4 % (11.5-14.5)
[2020-11-14] MEDS: Artificial Tears SOLN 15 ML BOTTLE BOTH EYES SCH ×3 (03:43→10:37)
[2020-11-14 03:57] LABS: Potassium 4.7 mEq/L (3.5-5.1)
[2020-11-14 03:58] LABS: Calcium 9.2 mg/dL (8.6-10.3); Magnesium 2.4 mg/dL (1.6-2.6); Phosphorous 2.4 mg/dL (2.7-4.5)
[2020-11-14 04:11] LABS: Platelet Count 65 K/mcL (140-400)
[2020-11-14] MEDS: Insulin LISPRO 300 UNITS/3 ML VIAL SUBQ SCH ×3 (04:28→12:22)
[2020-11-14 04:36] LABS: ABG Base Excess 1 mEq/L (-2 to 3); ABG HCO3 26 mEq/L (21-27); ABG Oxygen Saturation 96 % (95-98); ABG PCO2 41 mmHg (35-45); ABG PH 7.41 pH Units (7.32-7.45); ABG PO2 81 mmHg (85-104); ABG TCO2 27 mEq/L (20-26); Blood Gas VT 550 cc
[2020-11-14 04:47] LABS: Eosinophils # 0.4 K/mcL (0.0-0.6); Monocytes # 1.1 K/mcL (0.0-1.3); Neutrophils # 14.4 K/mcL (1.6-8.9)
[2020-11-14 04:48] LABS: Anisocytosis 2+ (Not Present); Macrocytosis Present (Not Present); Platelet Estimate Decreased (Normal); Reactive Lymphocytes Present (Not Present)
[2020-11-14] MEDS ORDERED: *HR* Heparin 5,000 UNIT/ML VIAL ONE (07:24)
[2020-11-14] MEDS: Pantoprazole 40 MG VIAL IVP SCH (07:25)
[2020-11-14] MEDS: Albumin 25% 25gram/100mL 25 GM/100 ML IV.SOLN IVPB SCH (07:26)
[2020-11-14] MEDS: Chlorhexidine Rinse 15 ML MOUTHWASH MM SCH (07:26)
[2020-11-14] MEDS: *HR* Heparin 5,000 UNIT/ML VIAL IVP PRN (07:40)
[2020-11-14] MEDS: Norepinephrine 4 MG/254 ML IV.SOLN IVC SCH (08:56)
[2020-11-14] MEDS ORDERED: Micafungin 100 MG in 0.9 % Sodium Chloride Mini Bag 100 ML IVPB SCH (09:00)
[2020-11-14 09:13] LABS: Albumin 4.3 g/dL (3.5-5.7); Bilirubin,Direct 9.5 mg/dL (0.0-0.2); Bilirubin,Indirect 7.2 mg/dL (0.0-1.0); Bilirubin,Total 16.7 mg/dL (0.3-1.0); Globulin 2.1 g/dL (2.4-3.5); Total Protein 6.4 g/dL (6.4-8.9)
[2020-11-14 09:38] LABS: INR 2.5; Prothrombin Time 28.3 Seconds (9.4-12.1)
[2020-11-14 09:39] LABS: Activated Partial Thrombo Time 73.6 Seconds (26.0-36.0)
[2020-11-14] MEDS: Meropenem 1,000 MG in Water for inj. (sterile) 20 ML IVP SCH (10:38)
[2020-11-14] MEDS ORDERED: *HR* LORazepam 2 MG/ML VIAL IVP PRN (14:14)
[2020-11-14 14:37] VITALS: BP 97/52
[2020-11-14] MEDS ORDERED: Clinimix 5%-20% SOLUTION 2,000 ML, Parenteral Amino Acid 10% 300 ML with MVI, adult wi... IVC SCH (17:00)
== END 2020-11-14 18:01 | disposition expired | DRG 720 ==
LOC: ICNU 15:14 → EMEROOARM 15:14 → OBSVTOIN 19:26 → ICNU 20:10
PROVIDERS: ADMIT Internal Medicine; ATTEND Internal Medicine